=== PATIENT | female | born 1935 | race Two or more races ===

== ENCOUNTER 2020-01-24 10:10 | Inpatient (IN) | payer OTHER ==
[2020-01-24] MEDS ORDERED: ACETAMINOPHEN 325 MG TABLET (FP) PO ONE (10:57)
[2020-01-24] MEDS ORDERED: ACETAMINOPHEN 325 MG TABLET (FP) ONE (11:10)
--- NOTE | 2020-01-24 11:25 | PDOC ---
Documentation entered by Angelito Orellana SCRIBE, acting as scribe for William Harp MD. William Harp MD: This documentation has been prepared by the viktoriaeEsteban Angel, SCRIBE, under my direction and personally reviewed by me in its entirety. I confirm that the documentation accurately reflects all work, treatment, procedures, and medical decision making performed by me. Attending Attestation - Resident Resident Name: Matthew Flaherty - ED Attending Attestation I have performed the following: I have examined & evaluated the patient, The case was reviewed & discussed with the resident, I agree w/resident's findings & plan, Exceptions are as noted - HPI HPI: 01/24/20 11:16 84y F hx of dm, htn, hl, presents with R flank pain. Pt state the pain started gradually approx 2 days ago, and has been worsening - it is so bad it was difficult for her to sleep last night. She courtney any fever/chills, cough, cp, sob, diarrhea, dysuria, hematuria, frquenecy, She dneis any recent trauma/injuries. Notes the pain is constant, not worse with leg movement, eating. +BM. mild improvement with motrin Exam: GENERAL: The patient is awake, alert, and fully oriented, Nontoxic - in no acute distress. HEAD: Normocephalic, atraumatic. EYES: extraocular movements intact, sclera anicteric, conjunctiva clear. ENT: Normal voice, Moist mucous membranes. NECK: Normal range of motion, supple LUNGS: Breath sounds equal, clear to auscultation bilaterally. No wheezes, no rhonchi, no rales. HEART: Regular rate and rhythm, normal S1 and S2 without murmur, rub or gallop. ABDOMEN: Soft, nontender, No guarding, no rebound. No CVA tenderness, Obese abdomen EXTREMITIES: Normal range of motion, no edema. NEUROLOGICAL: No facial assymetry, Normal speech, PSYCH: Normal mood, normal affect. SKIN: Warm, Dry, normal turgor, No rashes noted however there is a focal area of excoriations on the R lumbar/flank region ddx includes uti, kidney stone, consider appendicitis, howver no focal abd tenderness, considere early shingles will obtain blood work, ua willr easses - Physicial Exam PE: 01/31/20 22:52 see above - Medical Decision Making 01/24/20 16:[address] normal UA cw UTI Heart Score/ECG Review - ECG Impressions Comment:: 01/24/20 16:44 Twelve-lead EKG was performed and reviewed by me. There is normal sinus rhythm with a normal rate. rate of 89 RBBB, lAFB Discharge - Discharge Information Problems reviewed: Yes Clinical Impression/Diagnosis: Pyelonephritis Condition: Stable Disposition: HOME - Follow up/Referral - Patient Discharge Instructions - Post Discharge Activity
[2020-01-24] MEDS ORDERED: morphine CARPU-JECT 2 MG/1 ML DISP.SYRIN IVPUSH ONE (11:38)
--- NOTE | 2020-01-24 11:51 | PDOC ---
History of Present Illness - General Chief Complaint: Pain, Acute Stated Complaint: HIP PAIN Time Seen by Provider: 01/24/20 11:13 - History of Present Illness Initial Comments: 84 YOF h/o Parkinson's disease, htn and heart failure presents for right flank pain for 3 days. Patient reports wiggins is sharp in quality, 01/18, nothing makes better or worse, taking tylenol for it without relief. Otherwise denies CP, SOB, N/V/D, fever or chills, blood in urine, pain iwth urination, blood in stool, constipation. Full Review of Systems Constitutional: No Weight Change, No Fever, No Chills, No Night Sweats, No Fatigue, No Malaise ENT/Mouth: No Hearing Changes, No Ear Pain, No Nasal Congestion, No Sinus Pain, No Hoarseness, No sore throat, No Rhinorrhea, No Swallowing Difficulty Eyes: No Eye Pain, No Swelling, No Redness, No Foreign Body, No Discharge, No Vision Changes Cardiovascular: No Chest Pain, No SOB, No PND, No Dyspnea on Exertion, No Orthopnea, No Claudication, No Edema, No Palpitations Respiratory: No Cough, No Sputum, No Wheezing, No Smoke Exposure, No Dyspnea Gastrointestinal: No Nausea, No Vomiting, No Diarrhea, No Constipation, No Pain, No Heartburn, No Anorexia, No Dysphagia, No Hematochezia, No Melena, No Flatulence, No Jaundice Genitourinary: No Dysmenorrhea, No DUB, No Dyspareunia, No Dysuria, No Urinary Frequency, No Hematuria, No Urinary Incontinence, No Urgency, No Flank Pain, No Urinary Flow Changes, No Hesitancy Musculoskeletal: No Arthralgias, No Myalgias, No Joint Swelling, No Joint St iffness, No Back Pain, No Neck Pain, No Injury History Skin: No Skin Lesions, No Pruritis, No Hair Changes, No Breast/Skin Changes, No Nipple Discharge Neuro: No Weakness, No Numbness, No Paresthesias, No Loss of Consciousness, No Syncope, No Dizziness, No Headache, No Coordination Changes, No Recent Falls Psych: No Anxiety/Panic, No Depression, No Insomnia, No Personality Changes, No Delusions, No Rumination, No SI/HI/AH/VH, No Social Issues, No Memory Changes, No Violence/Abuse Hx., No Eating Concerns Heme/Lymph: No Bruising, No Bleeding, No Transfusions History, No Lymphadenopathy Endocrine: No Polyuria, No Polydipsia, No Temperature Intolerance Past History - Medical History Allergies/Adverse Reactions: Allergies Allergy/AdvReac Type Severity Reaction Status Date / Time No Known Drug Allergies Allergy Verified 01/24/20 10:36 Home Medications: Ambulatory Orders Sitagliptin Phosphate [Januvia] 100 mg PO DAILY 07/13/13 Carbidopa/Levodopa [Carbidopa-Levodopa 25-100 Tab] 1 each PO DAILY 01/24/20 Furosemide [Lasix] 20 mg PO DAILY 01/24/20 Meloxicam 15 mg PO DAILY 01/24/20 Pramipexole Di-HCl [Mirapex ER] 0.375 mg PO TID 01/24/20 Ramipril 2.5 mg PO DAILY 01/24/20 COPD: No Diabetes: Yes HTN: Yes Hypercholesterolemia: Yes - Reproductive History Is Patient Now?: No - Psycho-Social/Smoking History Smoking History: Never smoked Have you smoked in the past 12 months: No Information on smoking cessation initiated: No - Substance Abuse Hx (Audit-C & DAST Scrn) How often the patient has a drink containing alcohol: Never Score: In Men: 4 or > Positive; In Women: 3 or > Positive: 0 Screen Result (Pos requires Nsg. Audit-10AR): Negative In the last yr the pt used illegal drug/Rx for NonMed reason: No Score: Yes response is considered Positive: 0 Screen Result (Positive result requires Nsg. DAST-10): Negative *Physical Exam - Vital Signs Last Vital Signs Temp Pulse Resp BP Pulse Ox 98.2 F 86 18 128/72 94 L 01/24/20 10:30 01/24/20 10:30 01/24/20 10:30 01/24/20 10:30 01/24/20 10:30 - Physical Exam General Appearance: Yes: Nourished, Appropriately Dressed, Apparent Distress HEENT: positive: EOMI, RITCHIE, Normal ENT Inspection, Normal Voice, Symmetrical, TMs Normal, Pharynx Normal Neck: positive: Trachea midline, Normal Thyroid Respiratory/Chest: positive: Lungs Clear, Normal Breath Sounds Cardiovascular: positive: Regular Rhythm, Regular Rate, S1, S2 Gastrointestinal/Abdominal: positive: Normal Bowel Sounds, Tender, Flat, Soft, Tenderness Musculoskeletal: positive: Normal Inspection, CVA Tenderness Extremity: positive: Normal Capillary Refill, Normal Inspection Integumentary: positive: Normal Color, Dry, Warm ED Treatment Course - LABORATORY CBC & Chemistry Diagram: 01/24/20 12:16 01/24/20 12:11 - Medications Given in the ED: ED Medications Discontinued Medications Generic Name Dose Route Start Last Admin Trade Name Shruti PRN Reason Stop Dose Admin Acetaminophen 650 mg 01/24/20 10:57 01/24/20 11:15 Tylenol - PO 01/24/20 10:58 650 mg ONCE ONE Administration Medical Decision Making - Medical Decision Making 84 YOF h/o htn, hf, parkinsons presenting with abdominal and flank pain - vitals wnl - exam reveals ttp along right flank and ttp of abdomen - labs, UA, CT abdomen, Xray right hip, tylenol, morphine 01/24/20 15:29 labs wnl UA reveals 1+ LE, >9000 bacteria, 500s WBCs Will give dose rocephin and admit for pyelonephritis/ cystitis 01/24/20 15:30 Admit for pyelo 01/24/20 18:57 Discharge - Discharge Information Problems reviewed: Yes Clinical Impression/Diagnosis: Pyelonephritis - Follow up/Referral - Patient Discharge Instructions - Post Discharge Activity
[2020-01-24] MEDS ORDERED: MORPHINE SULFATE 2 MG/ML VIAL ONE (12:00)
[2020-01-24 12:26] LABS: BASO % 0.5 % (0-2.0); EOS % 0.1 % (0-4.5); LYMPH % 11.2 % (8-40); MCH 30.3 pg (25.7-33.7); MCHC 33.3 g/dl (32.0-36.0); MEAN CELL VOLUME 91.2 fl (80-96); MEAN PLT VOLUME 9.9 fl (7.5-11.1); MONO % 4.6 % (3.8-10.2); NEUT % 83.6 % (42.8-82.8); PLATELET COUNT 250 K/MM3 (134-434); RDW 13.6 % (11.6-15.6); WHITE BLOOD COUNT 10.2 K/mm3 (4.0-10.0)
[2020-01-24 12:58] LABS: ALBUMIN 3.6 g/dl (3.4-5.0); ALK PHOS 96 U/L (45-117); ANION GAP 7 MMOL/L (8-16); BILIRUBIN,TOTAL 0.8 mg/dL (0.2-1); CALCIUM 9.5 mg/dL (8.5-10.1); CHLORIDE 95 mmol/L (98-107); CO2 27 mmol/L (21-32); CREATININE 1.2 mg/dL (0.55-1.3); POTASSIUM 5.1 mmol/L (3.5-5.1); SGOT/AST 25 U/L (15-37); SGPT/ALT 9 U/L (13-61); SODIUM 129 mmol/L (136-145)
[2020-01-24 13:06] LABS: GLUCOSE,RANDOM 442 mg/dL (74-106)
[2020-01-24] MEDS ORDERED: SODIUM CHLORIDE 0.9% 500 ML INFUS.BAG IV ONE (13:10)
[2020-01-24 14:22] LABS: EPI CELLS 6 /uL (0-25.1); HYALINE CASTS 1 /uL (0-3.1); URINE APPEARANCE CLOUDY; URINE BACTERIA >9,000 /uL (0-1359); URINE BILIRUBIN NEGATIVE (NEGATIVE); URINE COLOR YELLOW; URINE GLUCOSE (UA) 3+ (NEGATIVE); URINE KETONE NEGATIVE (NEGATIVE); URINE LEUK ESTERASE 1+ (NEGATIVE); URINE NITRITE NEGATIVE (NEGATIVE); URINE PROTEIN TRACE (NEGATIVE); URINE RBC 11 /uL (0-23.9); URINE UROBILINOGEN 0.2 mg/dL (0.2-1.0); URINE WBC 648 /uL (0-25.8)
[2020-01-24] MEDS ORDERED: CEFTRIAXONE 1 GM in DEXTROSE 5%-WATER - 100 ML IVPB ONE (15:00)
[2020-01-24] MEDS ORDERED: CEFTRIAXONE 1 GM/50 ML BAG ONE (15:09)
--- NOTE | 2020-01-24 16:22 | HP ---
CHIEF COMPLAINT: right sided flank pain PCP: HISTORY OF PRESENT ILLNESS: Patient is an 84 year old female with history of Parkinson's Disease, hypertension, diabetes mellitus, congestive heart failure, presents with complaint of right lower abdominal quadrant/ flank pain. Patient endorses pain has been ongoing for the past three days without clear inciting features. She describes sharp pain localized to the right flank that is constant. She attempted taking Acetaminophen, and Ibuprofen which were temporarily palliative. She endorses urinary frequency, however denies dysuria or hematuria. She denies subjective fevers, chills, shortness of breath, chest pain, palpitations, abdominal pain, nausea, or vomiting. ER course was notable for: (1) CT abdomen, pelvis (2) (3) Recent Travel: denies PAST MEDICAL HISTORY: Parkinson's Disease, hypertension, diabetes mellitus, PAST SURGICAL HISTORY: hysterectomy Social History: Lives with and child. Independent in activities daily living Smoking: Denies smoking cigarettes Alcohol: Denies alcohol consumption Drugs: Denies illicit drug use Allergies No Known Drug Allergies Allergy (Verified 01/24/20 10:36) HOME MEDICATIONS: Home Medications Medication Instructions Recorded Sitagliptin Phosphate [Januvia] 100 mg PO DAILY 07/13/13 Carbidopa/Levodopa 1 each PO DAILY 01/24/20 [Carbidopa-Levodopa 25-100 Tab] Furosemide [Lasix] 20 mg PO DAILY 01/24/20 Meloxicam 15 mg PO DAILY 01/24/20 Pramipexole Di-HCl [Mirapex ER] 0.375 mg PO TID 01/24/20 Ramipril 2.5 mg PO DAILY 01/24/20 REVIEW OF SYSTEMS CONSTITUTIONAL: Absent: fever, chills, diaphoresis, generalized weakness, malaise, loss of appetite, weight change HEENT: Absent: rhinorrhea, nasal congestion, throat pain, throat swelling, difficulty swallowing, mouth swelling, ear pain, eye pain, visual changes CARDIOVASCULAR: Absent: chest pain, syncope, palpitations, irregular heart rate, lightheadedness, peripheral edema RESPIRATORY: Absent: cough, shortness of breath, dyspnea with exertion, orthopnea, wheezing, stridor, hemoptysis GASTROINTESTINAL: Absent: abdominal pain, abdominal distension, nausea, vomiting, diarrhea, constipation, melena, hematochezia GENITOURINARY: Admits; flank pain, urinary frequency. Absent: dysuria, urgency, hesitancy, celestine turia, genital pain MUSCULOSKELETAL: Absent: myalgia, arthralgia, joint swelling, back pain, neck pain SKIN: Absent: rash, itching, pallor HEMATOLOGIC/IMMUNOLOGIC: Absent: easy bleeding, easy bruising, lymphadenopathy, frequent infections ENDOCRINE: Absent: unexplained weight gain, unexplained weight loss, heat intolerance, cold intolerance NEUROLOGIC: Absent: headache, focal weakness or paresthesias, dizziness, unsteady gait, seizure, mental status changes, bladder or bowel incontinence PSYCHIATRIC: Absent: anxiety, depression, suicidal or homicidal ideation, hallucinations. PHYSICAL EXAMINATION Vital Signs - 24 hr 01/24/20 10:30 Temperature 98.2 F Pulse Rate 86 Respiratory 18 Rate Blood Pressure 128/72 O2 Sat by Pulse 94 L Oximetry (%) GENERAL: The patient is awake, alert, and fully oriented, in no acute distress. HEAD: Normocephalic, atraumatic. EYES: PERRL, extraocular movements intact, sclera anicteric, conjunctiva clear. ENT: Oropharynx clear, without erythema or exudates. Moist mucous membranes. NECK: Trachea midline, full range of motion. Supple without lymphadenopathy. LUNGS: Breath sounds equal, clear to auscultation bilaterally. No wheezes, no crackles. No accessory muscle use. HEART: Regular rate and rhythm. S1, S2 without murmur, rub or gallop. ABDOMEN: Soft, nondistended, diffusely tender to deep palpation x4 quadrants. No rebound tenderness, no guarding. Normoactive bowel sounds x4 quadrants. No hepatosplenomegaly, no masses appreciated. Negative CVA tenderness bilaterally EXTREMITIES: 2+ radial, dorsalis pedis pulses bilaterally. Warm, well-perfused. No lower extremity edema bilaterally. NEUROLOGICAL: Cranial nerves II through XII grossly intact. Normal speech. No gross focal deficits. PSYCH: Normal mood, normal affect upon my encounter. SKIN: Warm, dry. Vertical abdominal surgical scar noted well healed. Laboratory Results - last 24 hr 01/24/20 01/24/20 01/24/20 12:11 12:16 13:00 WBC 10.2 H RBC 4.60 Hgb 14.0 Hct 42.0 MCV 91.2 MCH 30.3 MCHC 33.3 RDW 13.6 Plt Count 250 MPV 9.9 Absolute Neuts (auto) 8.5 H Neutrophils % 83.6 H Lymphocytes % 11.2 Monocytes % 4.6 Eosinophils % 0.1 Basophils % 0.5 Nucleated RBC % 0 Sodium 129 L Potassium 5.1 Chloride 95 L Carbon Dioxide 27 Anion Gap 7 L BUN 29.0 H Creatinine 1.2 Est GFR (CKD-EPI)AfAm 47.72 Est GFR (CKD-EPI)NonAf 41.18 Random Glucose 442 H* Calcium 9.5 Total Bilirubin 0.8 AST 25 ALT 9 L Alkaline Phosphatase 96 Total Protein 7.0 Albumin 3.6 Urine Color Yellow Urine Appearance Cloudy Urine pH 5.0 Ur Specific Jermyn 1.025 Urine Protein Trace Urine Glucose (UA) 3+ H Urine Ketones Negative Urine Blood Negative Urine Nitrite Negative Urine Bilirubin Negative Urine Urobilinogen 0.2 Ur Leukocyte Esterase 1+ H Urine WBC (Auto) 648 Urine RBC (Auto) 11 Urine Casts (Auto) 1 U Epithel Cells (Auto) 6 Urine Bacteria (Auto) >9,000 ASSESSMENT/PLAN: Patient is an 84 year old female with history of Parkinson's Disease, hypertension, diabetes mellitus, congestive heart failure, presents with complaint of right lower abdominal quadrant, flank pain. Pyelonephritis -CT abdomen pelvis reveals no acute hydronephrosis, or nephrolithiasis -WBC 10.2. UA reveals bacteruria with leukocyte esterase -Received Ceftriaxone in ED. Will continue Ceftriaxone for now -Renal/ bladder ultrasound to evaluate for nephrolithiasis -Follow urine cultures -Monitor intake, output Hyperglycemia, Diabetes mellitus -Glucose of 445 in ED, anion gap 7. Fingerstick currently 295. -Patient received hydration with IV normal saline -Repeat BMP -Insulin sliding scale ACHS. Holding home Januvia -Fingerstick blood glucose monitoring ACHS -HgBA1c RBBB, Left anterior fascicular block -Noted on ECG, none available for comparison. Denies any chest pain. -Will obtain Troponin -Cardiology evaluation (Dr Harrison) -Telemetry monitoring History of hypertension -Holding home Ramipril in setting of AUBREE -Reinstate once clinically appropriate Parkinson's Disease Continue home Carbidopa-Levodopa, Paramipexole HFrEF -Taking Furosemide at home, however unclear indication. Will hold for now in favor of gentle hydration -Will need to eulicdate indication with primary care physician FEN -IV normal saline at 50mL/ hour X1 bag -Follow BMP -Sodium modified diabetic diet Prophylaxis -Heparin 5000units subq TID Disposition -Admit to Telemetry floor Family Medical History Family History: Unremarkable Visit type - Medication Review Med list reviewed for High Risk Meds patients 65 and older: Yes - Emergency Visit Emergency Visit: Yes ED Registration Date: 01/24/20 Care time: The patient presented to the Emergency Department on the above date and was hospitalized for further evaluation of their emergent condition. - New Patient This patient is new to me today: Yes Date on this admission: 01/24/20 - Critical Care Critical Care patient: No ATTENDING PHYSICIAN STATEMENT I saw and evaluated the patient. I reviewed the resident's note and discussed the case with the resident. I agree with the resident's findings and plan as documented. SUBJECTIVE: OBJECTIVE: ASSESSMENT AND PLAN:
[2020-01-24] MEDS: INSULIN SLIDING SCALE (NOVOLOG) 1 VIAL SQ SCH ×2 (16:35→22:23)
[2020-01-24] MEDS ORDERED: SODIUM CHLORIDE 1,000 ML IV SCH (18:15)
[2020-01-24 19:10] LABS: BLOOD UREA NITROGEN 21.8 mg/dL (7-18); CALCIUM 8.9 mg/dL (8.5-10.1); CREATININE 1.1 mg/dL (0.55-1.3); POTASSIUM 4.7 mmol/L (3.5-5.1)
[2020-01-24] MEDS ORDERED: ACETAMINOPHEN INJECTION 100 ML IVPB ONE (19:58)
[2020-01-24] MEDS: ACETAMINOPHEN 1000 MG/100 ML VIAL (NON FORMULARY) IVPB PRN (20:03)
[2020-01-24] MEDS ORDERED: HEPARIN NA (PORCINE) 5,000 UNITS/ML 1ML VIAL ONE (22:10)
[2020-01-24] MEDS: HEPARIN NA (PORCINE) 5,000 UNITS/ML 1ML VIAL SQ SCH (22:23)
--- NOTE | 2020-01-25 05:49 | CON.CARD ---
Consult Consult Specialty:: Cardiology Referred by:: Dr. Mariano Reason for Consultation:: abnl ECG - History of Present Illness Chief Complaint: Flank pain History of Present Illness: 84 F Parkinson's Dz, HTN, DM, "CHF", presents to ER with abdominal pain and flank pain and UTI. Found to have a baseline abnl ECG for which we are consulted. 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 Denies CP/SOB/Palps/syncope. - History Source History Provided By: Patient Limitations to Obtaining History: No Limitations - Past Medical History ENVIRONMENTAL PLANNER: Yes: Parkinson's Cardio/Vascular: Yes: CHF, HTN Hepatobiliary: No: Cirrhosis, Cholelithiasis, Cholecystitis, Choled ocholithiasis, Hepatitis A, Hepatitis B, Hepatitis C, Other Renal/: No: Renal Failure, Renal Inusuff, BPH, Cancer, Hematuria, Hemodialysis, Neurogenic Bladder, Renal Calculi, UTI, Other Reproductive: No: Ectopic , Endometriosis, Fibroids, PID, Polycystic Ovary Syndrome, Postmenopausal, Other ...: No - Alcohol/Substance Use Hx Alcohol Use: No - Smoking History Smoking history: Never smoked Have you smoked in the past 12 months: No - Social History History of Recent Travel: No Home Medications - Allergies Allergies/Adverse Reactions: Allergies Allergy/AdvReac Type Severity Reaction Status Date / Time No Known Drug Allergies Allergy Verified 01/24/20 10:36 - Home Medications Home Medications: Ambulatory Orders Sitagliptin Phosphate [Januvia] 100 mg PO DAILY 07/13/13 Carbidopa/Levodopa [Carbidopa-Levodopa 25-100 Tab] 1 each PO DAILY 01/24/20 Furosemide [Lasix] 20 mg PO DAILY 01/24/20 Meloxicam 15 mg PO DAILY 01/24/20 Pramipexole Di-HCl [Mirapex ER] 0.375 mg PO TID 01/24/20 Ramipril 2.5 mg PO DAILY 01/24/20 Family Medical History Family History: Unremarkable Review of Systems - Review of Systems Constitutional: reports: No Symptoms Eyes: reports: No Symptoms HENT: reports: No Symptoms Neck: reports: No Symptoms Cardiovascular: reports: No Symptoms Respiratory: reports: No Symptoms Gastrointestinal: reports: Abdominal Pain, Other (flank pain) Breasts: reports: No Symptoms Reported Musculoskeletal: reports: Other (pain over lower back, iliac crests) - Risk Factors Known Risk Factors: Yes: Age, Hypertension Vital Signs: Vital Signs Temperature 98.2 F 01/24/20 10:30 Pulse Rate 76 01/25/20 02:22 Respiratory Rate 18 01/25/20 02:22 Blood Pressure 146/66 01/25/20 02:22 O2 Sat by Pulse Oximetry (%) 95 01/25/20 02:22 Constitutional: Yes: No Distress, Calm Eyes: Yes: Conjunctiva Clear Respiratory: Yes: CTA Bilaterally Gastrointestinal: Yes: Soft (No rebound, guarding) JVD: No Carotid Bruit: No Heart Sounds: Yes: S1, S2 (rrr) Edema: No Neurological: Yes: Alert - Other Data Labs, Other Data: CBC, BMP 01/24/20 12:16 01/24/20 18:22 Troponin, BNP 01/24/20 01/25/20 12:11 01:30 Troponin I < 0.02 < 0.02 Troponin, BNP 01/24/20 01/25/20 12:11 01:30 Troponin I < 0.02 < 0.02 NSR LAHB, RBBB, nonspecific T wave laterally Echo: Pending Imaging - Results Chest X-ray: Image Reviewed Cat Scan: Report Reviewed Assessment/Plan IMP: Abdominal pain with suspected UTI Back pain Abnormal ECG, incidental finding Chronic HTN "CHF" REC: 1. Abdominal /flank pain: -Suspected UTI -As per PMD -Seems to be component of MSK pain as well 2. 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 3. HTN: -Cont home meds 4. CHF: -Unclear history -Euvolemic at this time -Echo for EF assessmen Can d/c telemetry
[2020-01-25 06:40] LABS: HEMATOCRIT 37.7 % (32.4-45.2); HEMOGLOBIN 12.5 GM/dL (10.7-15.3); MCH 30.3 pg (25.7-33.7); MCHC 33.2 g/dl (32.0-36.0); MEAN CELL VOLUME 91.4 fl (80-96); MEAN PLT VOLUME 9.6 fl (7.5-11.1); PLATELET COUNT 206 K/MM3 (134-434); RBC 4.12 M/mm3 (3.60-5.2); RDW 13.6 % (11.6-15.6); WHITE BLOOD COUNT 7.3 K/mm3 (4.0-10.0)
[2020-01-25 07:11] LABS: BILIRUBIN,TOTAL 0.4 mg/dL (0.2-1); BLOOD UREA NITROGEN 18.3 mg/dL (7-18); CALCIUM 8.9 mg/dL (8.5-10.1); CREATININE 0.9 mg/dL (0.55-1.3); MAGNESIUM 1.8 mg/dL (1.8-2.4); PHOSPHOROUS 2.5 mg/dL (2.5-4.9); POTASSIUM 4.2 mmol/L (3.5-5.1)
[2020-01-25] MEDS ORDERED: ACETAMINOPHEN INJECTION 100 ML IVPB ONE (07:43)
[2020-01-25] MEDS ORDERED: HEPARIN NA (PORCINE) 5,000 UNITS/ML 1ML VIAL ONE (07:43)
[2020-01-25] MEDS: ACETAMINOPHEN 1000 MG/100 ML VIAL (NON FORMULARY) IVPB PRN (07:53)
[2020-01-25] MEDS: HEPARIN NA (PORCINE) 5,000 UNITS/ML 1ML VIAL SQ SCH ×3 (07:53→22:13)
[2020-01-25] MEDS: INSULIN SLIDING SCALE (NOVOLOG) 1 VIAL SQ SCH ×4 (07:53→22:14)
--- NOTE | 2020-01-25 08:59 | EKG ---
Test Reason : Blood Pressure : / mmHG Vent. Rate : 089 BPM Atrial Rate : 089 BPM P-R Int : 136 ms QRS Dur : 118 ms QT Int : 380 ms P-R-T Axes : 031 -68 024 degrees QTc Int : 462 ms NORMAL SINUS RHYTHM RIGHT BUNDLE BRANCH BLOCK LEFT ANTERIOR FASCICULAR BLOCK NONSPECIFIC T WAVE ABNORMALITY BIFASCICULAR BLOCK ABNORMAL ECG Confirmed by RASHMI GUY MD ([id number]) on 01/25/2020 8:58:46 AM Referred By: Confirmed By:RASHMI GUY MD
[2020-01-25] MEDS ORDERED: DEXTROSE 5%-WATER - 50 ML IVPB ONE (09:12)
[2020-01-25] MEDS ORDERED: cefTRIAXone SODIUM 1 GM VIAL ONE (09:12)
[2020-01-25] MEDS: CARBIDOPA/LEVODOPA 25/100 TABLET (FP) PO SCH (09:19)
[2020-01-25] MEDS ORDERED: MORPHINE SULFATE 2 MG/ML VIAL IVPUSH ONE (09:45)
--- NOTE | 2020-01-25 10:55 | ECHO ---
Version: 1 Name: LAURIE GUZMAN Exam: Adult Echocardiogram Study Date: 01/25/2020, 9:36 AM Age: 84 Years MMode/2D Measurements & Calculations IVSd: 0.96 cm LVIDs: 2.01 cm LVIDd: 2.9 cm LVPWd: 1.09 cm ACS: 1.89 cm Ao root diam: 3.0 cm LVOT diam: 2.00 cm LA dimension: 3.5 cm Doppler Measurements & Calculations MV E max francisco javier: 115.0 cm/sec Med E/e': 23.1 MV A max francisco javier: 105.1 cm/sec Med Peak E' Francisco Javier: 5.0 cm/sec MV E/A: 1.09 Lat E/e': 17.4 Lat Peak E' Francisco Javier: 6.6 cm/sec Ao max P.7 mmHg LEANNE(I,D): 2.09 cm Ao mean P.6 mmHg LV V1 mean: 58.2 cm/sec Ao V2 max: 138.5 cm/sec LV V1 mean P.80 mmHg Procedure The study was technically difficult with many images being suboptimal in quality. Left Ventricle Left ventricular systolic function is grossly normal. Ejection Fraction = 60-65%. The transmitral sp ectral Doppler flow pattern is normal for age. Regional wall motion abnormalities cannot be excluded due to limited visualization. Right Ventricle The right ventricle is normal in size and function. Atria Normal left and right atrial size and function. Mitral Valve The mitral valve is normal in structure and function. There is no mitral valve stenosis. There is mi ld mitral regurgitation. Tricuspid Valve The tricuspid valve is not well visualized, but is grossly normal. There is trace tricuspid regurgit ation. Aortic Valve There is mild aortic sclerosis.;. No hemodynamically significant valvular aortic stenosis. No aortic regurgitation is present. Pulmonic Valve The pulmonic valve is not well seen, but is grossly normal. There is no pulmonic valvular stenosis. Trace pulmonic valvular regurgitation. Great Vessels The aortic root is normal size. Pericardium/Pleura There is no pericardial effusion. Tech Comments TDS. Limited visibility. Summary Statements The study was technically difficult with many images being suboptimal in quality. Regional wall motion abnormalities cannot be excluded due to limited visualization. Left ventricular systolic function is grossly normal. The right ventricle is normal in size and function. There is mild mitral regurgitation. There is trace tricuspid regurgitation. There is no pericardial effusion. MD Rondon *Balaji 01/25/2020, 10:55 AM Ordering Physician: Alcon Guy Referring Physician: ALCON GUY Performed By: Kayla Mensah
[2020-01-25] MEDS: CEFTRIAXONE 1 GM in DEXTROSE 5%-WATER - 50 ML IVPB SCH (11:06)
--- NOTE | 2020-01-25 12:08 | PN ---
Teaching Attending Note Name of Resident: Pamela Trujillo ATTENDING PHYSICIAN STATEMENT I saw and evaluated the patient. I reviewed the resident's note and discussed the case with the resident. I agree with the resident's findings and plan as documented. SUBJECTIVE: pt seen and examined OBJECTIVE: Last Vital Signs Temp Pulse Resp BP Pulse Ox 98.3 F 97 H 18 144/64 97 01/25/20 09:03 01/25/20 09:03 01/25/20 09:03 01/25/20 09:03 01/25/20 09:03 GENERAL: Awake, alert, and fully oriented, in no acute distress. LUNGS: Breath sounds equal, clear to auscultation bilaterally. No wheezes, and no crackles. No accessory muscle use. HEART: Regular rate and rhythm, normal S1 and S2 ABDOMEN: Soft,Rt lumbar and CVA tenderness, BS+ LOWER EXTREMITIES: 2+ pulses, warm, well-perfused. No calf tenderness. No peripheral edema. NEUROLOGICAL: Cranial nerves II-XII intact. Normal speech. CBCD WBC 7.3 K/mm3 (4.0-10.0) 01/25/20 05:50 RBC 4.12 M/mm3 (3.60-5.2) 01/25/20 05:50 Hgb 12.5 GM/dL (10.7-15.3) 01/25/20 05:50 Hct 37.7 % (32.4-45.2) 01/25/20 05:50 MCV 91.4 fl (80-96) 01/25/20 05:50 MCHC 33.2 g/dl (32.0-36.0) 01/25/20 05:50 RDW 13.6 % (11.6-15.6) 01/25/20 05:50 Plt Count 206 K/MM3 (134-434) 01/25/20 05:50 MPV 9.6 fl (7.5-11.1) 01/25/20 05:50 CMP Sodium 136 mmol/L (136-145) 01/25/20 05:50 Potassium 4.2 mmol/L (3.5-5.1) 01/25/20 05:50 Chloride 104 mmol/L (98-107) 01/25/20 05:50 Carbon Dioxide 27 mmol/L (21-32) 01/25/20 05:50 Anion Gap 5 MMOL/L (8-16) L 01/25/20 05:50 BUN 18.3 mg/dL (7-18) H 01/25/20 05:50 Creatinine 0.9 mg/dL (0.55-1.3) 01/25/20 05:50 Random Glucose 175 mg/dL (74-106) H 01/25/20 05:50 Calcium 8.9 mg/dL (8.5-10.1) 01/25/20 05:50 Total Bilirubin 0.4 mg/dL (0.2-1) 01/25/20 05:50 AST 18 U/L (15-37) 01/25/20 05:50 ALT 18 U/L (13-61) 01/25/20 05:50 Alkaline Phosphatase 75 U/L (45-117) 01/25/20 05:50 Total Protein 6.0 g/dl (6.4-8.2) L 01/25/20 05:50 Albumin 3.0 g/dl (3.4-5.0) L 01/25/20 05:50 CARDIAC ENZYMES Troponin I < 0.02 ng/ml (0.00-0.05) 01/25/20 01:30 Active Medications Acetaminophen (Ofirmev Injection -) 1,000 mg IVPB Q6H PRN PRN Reason: PAIN LEVEL 1-5 Last Admin: 01/25/20 07:53 Dose: 1,000 mg Documented by: Carbidopa/Levodopa (Sinemet 25/100 -) 1 each PO DAILY SONYA Last Admin: 01/25/20 09:19 Dose: 1 each Documented by: Heparin Sodium (Porcine) (Heparin -) 5,000 unit SQ TID SONYA Last Admin: 01/25/20 07:53 Dose: 5,000 unit Documented by: Ceftriaxone Sodium 1 gm/ (Dextrose) 50 mls @ 100 mls/hr IVPB DAILY SONYA; Protocol Last Admin: 01/25/20 11:06 Dose: 100 mls/hr Documented by: Sodium Chloride (Normal Saline -) 1,000 mls @ 50 mls/hr IV ASDIR SONYA Stop: 01/25/20 14:14 Last Admin: 01/24/20 19:04 Dose: 50 mls/hr Documented by: Insulin Aspart (Novolog Vial Sliding Scale -) 1 vial SQ ACHS SONYA; Protocol Last Admin: 01/25/20 07:53 Dose: 1 unit Documented by: Non-Formulary Medication (Pramipexole Di-Hcl [Mirapex Er]) 0.375 mg PO TID [facility] ASSESSMENT AND PLAN: 84 year old lady with history of Parkinson's Disease, hypertension, diabetes mellitus, HFpEF, presents with complaint of right lower abdominal quadrant/ flank pain # Sepsis due to acute pyelonephritis leukocytosis, tachycardia, +ve UA/culture -CT and US noted, no hydronephrosis -VSS -c/w ceftriaxone, gentle hydration, pain management -urine cultures G-ve -Monitor intake, output Hyperglycemia Diabetes mellitus HFpEF AUBREE Parkinson's Disease DVT prophylaxis
--- NOTE | 2020-01-25 12:37 | PN ---
Physical Exam: SUBJECTIVE: Patient seen and examined at bedside. No acute events overnight. OBJECTIVE: Vital Signs Period Temp Pulse Resp BP Sys/Delgadillo Pulse Ox Last 24 Hr 97.9 F-98.3 F 76-97 17-18 118-146/50-72 94-97 GENERAL: AAOx3, in no acute distress HEENT: NCAT, PERRLA, EOMI, sclera anicteric, conjunctiva clear, oropharynx clear w/o exudates. MMM. NECK: Normal ROM, supple, no lymphadenopathy, JVD, or masses LUNGS: CTABL no wheezes/ rhonchi/ rales. No distress, speaks in full sentences. No increased work of breathing. HEART: RRR, normal S1 S2, no M/R/G, peripheral pulses 2+ and equal b/l ABDOMEN: Soft, NTND, + BS. No guarding or rebound. No hepatomegaly or splenomegaly. +CVA tenderness MSK: ROM WNL EXTREMITIES: Normal inspection. No peripheral edema. No clubbing or cyanosis. NEUROLOGICAL: CN II-XII intact. Normal speech, no focal sensorimotor deficits. SKIN: Warm, Dry, normal turgor, no rashes or lesions noted Laboratory Results - last 24 hr CBC, BMP 01/25/20 05:50 01/25/20 05:50 01/24/20 01/24/20 01/24/20 12:11 13:00 16:33 WBC RBC Hgb Hct MCV MCH MCHC RDW Plt Count MPV Sodium 129 L Potassium 5.1 Chloride 95 L Carbon Dioxide 27 Anion Gap 7 L BUN 29.0 H Creatinine 1.2 Est GFR (CKD-EPI)AfAm 47.72 Est GFR (CKD-EPI)NonAf 41.18 POC Glucometer 295 Random Glucose 442 H* Calcium 9.5 Phosphorus Magnesium Total Bilirubin 0.8 AST 25 ALT 9 L Alkaline Phosphatase 96 Troponin I < 0.02 Total Protein 7.0 Albumin 3.6 Urine Color Yellow Urine Appearance Cloudy Urine pH 5.0 Ur Specific Pinson 1.025 Urine Protein Trace Urine Glucose (UA) 3+ H Urine Ketones Negative Urine Blood Negative Urine Nitrite Negative Urine Bilirubin Negative Urine Urobilinogen 0.2 Ur Leukocyte Esterase 1+ H Urine WBC (Auto) 648 Urine RBC (Auto) 11 Urine Casts (Auto) 1 U Epithel Cells (Auto) 6 Urine Bacteria (Auto) >9,000 01/24/20 01/24/20 01/25/20 18:22 22:13 01:30 WBC RBC Hgb Hct MCV MCH MCHC RDW Plt Count MPV Sodium 133 L Potassium 4.7 Chloride 100 Carbon Dioxide 26 Anion Gap 8 BUN 21.8 H Creatinine 1.1 Est GFR (CKD-EPI)AfAm 53.02 Est GFR (CKD-EPI)NonAf 45.74 POC Glucometer 288 Random Glucose 275 H Calcium 8.9 Phosphorus Magnesium Total Bilirubin AST ALT Alkaline Phosphatase Troponin I < 0.02 Total Protein Albumin Urine Color Urine Appearance Urine pH Ur Specific Pinson Urine Protein Urine Glucose (UA) Urine Ketones Urine Blood Urine Nitrite Urine Bilirubin Urine Urobilinogen Ur Leukocyte Esterase Urine WBC (Auto) Urine RBC (Auto) Urine Casts (Auto) U Epithel Cells (Auto) Urine Bacteria (Auto) 01/25/20 01/25/20 01/25/20 05:50 05:50 07:34 WBC 7.3 RBC 4.12 Hgb 12.5 Hct 37.7 MCV 91.4 MCH 30.3 MCHC 33.2 RDW 13.6 Plt Count 206 MPV 9.6 Sodium 136 Potassium 4.2 Chloride 104 Carbon Dioxide 27 Anion Gap 5 L BUN 18.3 H Creatinine 0.9 Est GFR (CKD-EPI)AfAm 67.57 Est GFR (CKD-EPI)NonAf 58.30 POC Glucometer 193 Random Glucose 175 H Calcium 8.9 Phosphorus 2.5 Magnesium 1.8 Total Bilirubin 0.4 AST 18 ALT 18 Alkaline Phosphatase 75 Troponin I Total Protein 6.0 L Albumin 3.0 L Urine Color Urine Appearance Urine pH Ur Specific Pinson Urine Protein Urine Glucose (UA) Urine Ketones Urine Blood Urine Nitrite Urine Bilirubin Urine Urobilinogen Ur Leukocyte Esterase Urine WBC (Auto) Urine RBC (Auto) Urine Casts (Auto) U Epithel Cells (Auto) Urine Bacteria (Auto) Active Medications Generic Name Dose Route Start Last Admin Trade Name Freq PRN Reason Stop Dose Admin Acetaminophen 1,000 mg 01/24/20 18:15 01/25/20 07:53 Ofirmev Injection - IVPB 1,000 mg Q6H PRN Administration PAIN LEVEL 1-5 Carbidopa/Levodopa 1 each 01/25/20 10:00 01/25/20 09:19 Sinemet 25/100 - PO 1 each DAILY SONYA Administration Heparin Sodium (Porcine) 5,000 unit 01/24/20 22:00 01/25/20 07:53 Heparin - SQ 5,000 unit TID SONYA Administration Ceftriaxone Sodium 1 gm/ 50 mls @ 100 mls/hr 01/25/20 10:00 01/25/20 11:06 Dextrose IVPB 100 mls/hr DAILY SONYA Administration Protocol Sodium Chloride 1,000 mls @ 50 mls/hr 01/24/20 18:15 01/24/20 19:04 Normal Saline - IV 01/25/20 14:14 50 mls/hr ASDIR SONYA Administration Insulin Aspart 1 vial 01/24/20 16:30 01/25/20 11:54 Novolog Vial Sliding Scale - SQ 2 unit ACHS SONYA Administration Protocol Non-Formulary Medication 0.375 mg 01/24/20 22:00 Pramipexole Di-Hcl [Mirapex Er] PO TID SONYA ASSESSMENT/PLAN: 84 year old lady with history of Parkinson's Disease, hypertension, diabetes mellitus, HFpEF, presenting with complaint of right lower abdominal quadrant/flank pain. #Sepsis 2/2 acute pyelonephritis -leukocytosis and positive UA/culture -urine cultures: preliminary gram - organism -CT and US noted -VSS with tachycardia -c/w ab Ceftriaxone -c/w gentle hydration -c/w pain management PRN -monitor I/O's #Diabetes mellitus -ISS w/ BGM's #HFpEF -stable at this visit -home med Lasix held in favor of gentle hydration -continue to monitor #AUBREE -c/w gentle hydration #Parkinson's Disease c/w home Carbidopa-Levodopa #FEN -NS @ 50 mls/hrs -monitor lytes; replete PRN -diabetic sodium controlled diet #Prophylaxis -DVT: Heparin SQ TID Visit type - Emergency Visit Emergency Visit: No - New Patient This patient is new to me today: No - Critical Care Critical Care patient: No - Discharge Referral Referred to [facility] Med P.C[facility] No - Medication Review Med list reviewed for High Risk Meds patients 65 and older: Yes ATTENDING PHYSICIAN STATEMENT I saw and evaluated the patient. I reviewed the resident's note and discussed the case with the resident. I agree with the resident's findings and plan as documented. SUBJECTIVE: OBJECTIVE: ASSESSMENT AND PLAN:
[2020-01-25 13:36] VITALS: BMI 26.2
[2020-01-25] MEDS ORDERED: DOCUSATE SODIUM 100 MG CAPSULE (FP) PO ONE (16:14)
[2020-01-25] MEDS ORDERED: PNEUMOC 13-VAL CONJ-DIP CRM/PF 0.5 ML DISP.SYRIN IM ONE (18:00)
[2020-01-25] MEDS: SENNOSIDES 8.6MG TABLET (FP) PO SCH (22:13)
--- NOTE | 2020-01-25 22:34 | PN ---
Teaching Attending Note Name of Resident: Luis Maria ATTENDING PHYSICIAN STATEMENT I saw and evaluated the patient. I reviewed the resident's note and discussed the case with the resident. I agree with the resident's findings and plan as documented. SUBJECTIVE: Patient seen and examined at bedside, admitted for UTI, started on abx, VSS. OBJECTIVE: GENERAL: The patient is awake, alert, and fully oriented, in no acute distress. HEAD: Normocephalic, atraumatic. EYES: PERRL, extraocular movements intact, sclera anicteric, conjunctiva clear. ENT: Oropharynx clear, without erythema or exudates. Moist mucous membranes. NECK: Trachea midline, full range of motion. Supple without lymphadenopathy. LUNGS: Breath sounds equal, clear to auscultation bilaterally. No wheezes, no crackles. No accessory muscle use. HEART: Regular rate and rhythm. S1, S2 without murmur, rub or gallop. ABDOMEN: Soft, nondistended, diffusely tender to deep palpation x4 quadrants. No rebound tenderness, no guarding. Normoactive bowel sounds x4 quadrants. No hepatosplenomegaly, no masses appreciated. Negative CVA tenderness bilaterally EXTREMITIES: 2+ radial, dorsalis pedis pulses bilaterally. Warm, well-perfused. No lower extremity edema bilaterally. NEUROLOGICAL: Cranial nerves II through XII grossly intact. Normal speech. No gross focal deficits. PSYCH: Normal mood, normal affect upon my encounter. SKIN: Warm, dry. Vertical abdominal surgical scar noted well healed. Vital Signs (72 hours) 01/24/20 01/25/20 01/25/20 10:30 02:22 06:02 Temperature 98.2 F 97.9 F Pulse Rate 86 Pulse Rate [ 76 84 Left Radial] Respiratory 18 18 17 Rate Blood Pressure 128/72 Blood Pressure 146/66 132/72 [Right Arm] O2 Sat by Pulse 94 L 95 94 L Oximetry (%) 01/25/20 01/25/20 01/25/20 08:06 09:00 09:03 Temperature 98.3 F Pulse Rate 97 H Pulse Rate [ 81 Left Radial] Respiratory 18 18 Rate Blood Pressure 144/64 Blood Pressure 118/50 L [Right Arm] O2 Sat by Pulse 94 L 97 97 Oximetry (%) 01/25/20 01/25/20 01/25/20 13:41 14:21 18:00 Temperature 97.7 F 97.7 F Pulse Rate 87 97 H Pulse Rate [ Left Radial] Respiratory 20 18 Rate Blood Pressure 121/57 L 135/68 Blood Pressure [Right Arm] O2 Sat by Pulse 97 Oximetry (%) Microbiology 01/24/20 13:00 Urine - Urine Clean Catch Urine Culture - Preliminary Lactose Fermenting Neg Bacilli Lactose Fermenting Neg Bacilli#2 Laboratory Results - last 24 hr 01/25/20 01/25/20 01/25/20 01:30 05:50 05:50 WBC 7.3 RBC 4.12 Hgb 12.5 Hct 37.7 MCV 91.4 MCH 30.3 MCHC 33.2 RDW 13.6 Plt Count 206 MPV 9.6 Sodium 136 Potassium 4.2 Chloride 104 Carbon Dioxide 27 Anion Gap 5 L BUN 18.3 H Creatinine 0.9 Est GFR (CKD-EPI)AfAm 67.57 Est GFR (CKD-EPI)NonAf 58.30 POC Glucometer Random Glucose 175 H Calcium 8.9 Phosphorus 2.5 Magnesium 1.8 Total Bilirubin 0.4 AST 18 ALT 18 Alkaline Phosphatase 75 Troponin I < 0.02 Total Protein 6.0 L Albumin 3.0 L 01/25/20 07:34 WBC RBC Hgb Hct MCV MCH MCHC RDW Plt Count MPV Sodium Potassium Chloride Carbon Dioxide Anion Gap BUN Creatinine Est GFR (CKD-EPI)AfAm Est GFR (CKD-EPI)NonAf POC Glucometer 193 Random Glucose Calcium Phosphorus Magnesium Total Bilirubin AST ALT Alkaline Phosphatase Troponin I Total Protein Albumin Home Medications Medication Instructions Recorded Sitagliptin Phosphate [Januvia] 50 mg PO DAILY 07/13/13 Carbidopa/Levodopa 1 each PO TID 01/24/20 [Carbidopa-Levodopa 25-100 Tab] Furosemide [Lasix] 20 mg PO DAILY 01/24/20 Pramipexole Di-HCl [Mirapex ER] 0.375 mg PO TID 01/24/20 Ramipril 2.5 mg PO DAILY 01/24/20 Insulin Glargine,Hum.rec.anlog 45 unit SQ DAILY 01/25/20 [Basaglar Kwikpen U-100] Current Medications Generic Name Dose Route Start Last Admin Trade Name Freq PRN Reason Stop Dose Admin Acetaminophen 1,000 mg 01/25/20 18:25 Tylenol - PO Q6H PRN PAIN LEVEL 1-5 Carbidopa/Levodopa 1 each 01/25/20 10:00 01/25/20 09:19 Sinemet 25/100 - PO 1 each DAILY SONYA Administration Docusate Sodium 100 mg 01/26/20 10:00 Colace - PO DAILY SONYA Heparin Sodium (Porcine) 5,000 unit 01/24/20 22:00 01/25/20 22:13 Heparin - SQ 5,000 unit TID SONYA Administration Ceftriaxone Sodium 1 gm/ 50 mls @ 100 mls/hr 01/25/20 10:00 01/25/20 11:06 Dextrose IVPB 100 mls/hr DAILY SONYA Administration Protocol Insulin Aspart 1 vial 01/24/20 16:30 01/25/20 22:14 Novolog Vial Sliding Scale - SQ 4 unit ACHS SONYA Administration Protocol Non-Formulary Medication 0.375 mg 01/24/20 22:00 Pramipexole Di-Hcl [Mirapex Er] PO TID SONYA Senna 1 tab 01/25/20 22:00 01/25/20 22:13 Senna - PO 1 tab HS SONYA Administration ASSESSMENT AND PLAN: 84 F UTI T2DM RBBB PArkinson's HTN HLD HFrEF Plan: IV Rocephin for UTI FOllow urine cultures, obtain blood cultures Follow COVID swab Gentle IV hydration (hypovolemic on exam) Obtain Echo to assess for WMA Trops x2 Cardiology evaluation for BBB DVT ppx: Heparin SC
[2020-01-26] MEDS: ACETAMINOPHEN 500 MG TABLET (FP) PO PRN ×3 (00:25→12:15)
[2020-01-26] MEDS ORDERED: BISACODYL 10 MG SUPP.RECT PR ONE (00:29)
[2020-01-26] MEDS ORDERED: SODIUM PHOSPHATE/NA BIPHOS 133 ML ENEMA PR ONE (00:31)
[2020-01-26] MEDS: HEPARIN NA (PORCINE) 5,000 UNITS/ML 1ML VIAL SQ SCH ×3 (06:02→21:10)
[2020-01-26] MEDS: INSULIN SLIDING SCALE (NOVOLOG) 1 VIAL SQ SCH ×4 (06:02→21:10)
--- NOTE | 2020-01-26 08:57 | PN ---
Physical Exam: SUBJECTIVE: Patient seen and examined OBJECTIVE: Vital Signs Period Temp Pulse Resp BP Sys/Delgadillo Pulse Ox Last 24 Hr 97.7 F-98.6 F 87-97 18-20 121-144/57-76 97-97 GENERAL: The patient is awake, alert, and fully oriented, in no acute distress. LUNGS: Breath sounds equal, clear to auscultation bilaterally, no wheezes, no crackles, no accessory muscle use. HEART: Regular rate and rhythm, S1, S2 without murmur, rub or gallop. ABDOMEN: Soft, lt lumbar tenderness without rebound tenderness EXTREMITIES: 2+ pulses, warm, well-perfused, no edema. Laboratory Results - last 24 hr 01/24/20 01:30 COVID-19 (AMINTA) Not detected Active Medications Generic Name Dose Route Start Last Admin Trade Name Freq PRN Reason Stop Dose Admin Acetaminophen 1,000 mg 01/25/20 18:25 01/26/20 06:06 Tylenol - PO 1,000 mg Q6H PRN Administration PAIN LEVEL 1-5 Carbidopa/Levodopa 1 each 01/25/20 10:00 01/25/20 09:19 Sinemet 25/100 - PO 1 each DAILY SONYA Administration Docusate Sodium 100 mg 01/26/20 10:00 Colace - PO DAILY SONYA Heparin Sodium (Porcine) 5,000 unit 01/24/20 22:00 01/26/20 06:02 Heparin - SQ 5,000 unit TID SONYA Administration Ceftriaxone Sodium 1 gm/ 50 mls @ 100 mls/hr 01/25/20 10:00 01/25/20 11:06 Dextrose IVPB 100 mls/hr DAILY SONYA Administration Protocol Insulin Aspart 1 vial 01/24/20 16:30 01/26/20 06:02 Novolog Vial Sliding Scale - SQ 2 unit ACHS SONYA Administration Protocol Non-Formulary Medication 0.375 mg 01/24/20 22:00 Pramipexole Di-Hcl [Mirapex Er] PO TID SONYA Polyethylene Glycol 17 gm 01/26/20 10:00 Miralax (For Daily Use) - PO BID SONYA Senna 1 tab 01/25/20 22:00 01/25/20 22:13 Senna - PO 1 tab HS SONYA Administration ASSESSMENT/PLAN: 84 year old lady with history of Parkinson's Disease, hypertension, diabetes mellitus, HFpEF, presents with complaint of right lower abdominal quadrant/ flank pain # Sepsis due to acute pyelonephritis leukocytosis, tachycardia, +ve UA/culture -CT and US noted, no hydronephrosis -VSS -c/w ceftriaxone, gentle hydration, pain management -urine cultures G-ve -Monitor intake, output -still have lt sided pain, constipation?MSK? # Acute constipation -bowel regimen -added Miralax Hyperglycemia Diabetes mellitus HFpEF AUBREE Parkinson's Disease DVT prophylaxis Visit type - Emergency Visit Emergency Visit: Yes ED Registration Date: 01/24/20 Care time: The patient presented to the Emergency Department on the above date and was hospitalized for further evaluation of their emergent condition. - New Patient This patient is new to me today: No - Critical Care Critical Care patient: No - Discharge Referral Referred to [facility] Med P[facility] No - Medication Review Med list reviewed for High Risk Meds patients 65 and older: No
[2020-01-26] MEDS ORDERED: DEXTROSE 5%-WATER - 50 ML IVPB ONE (09:42)
[2020-01-26] MEDS ORDERED: cefTRIAXone SODIUM 1 GM VIAL ONE (09:42)
[2020-01-26] MEDS ORDERED: PT OWN MED DRAWER 7, Y5N ONE (09:42)
[2020-01-26] MEDS: CARBIDOPA/LEVODOPA 25/100 TABLET (FP) PO SCH (10:00)
[2020-01-26] MEDS: POLYETHYLENE GLYCOL 3350 119 GM BTL PO SCH ×2 (10:00→21:10)
[2020-01-26] MEDS: DOCUSATE SODIUM 100 MG CAPSULE (FP) PO SCH (10:00)
[2020-01-26] MEDS: CEFTRIAXONE 1 GM in DEXTROSE 5%-WATER - 50 ML IVPB SCH (10:00)
--- NOTE | 2020-01-26 13:18 | PN ---
Progress Note, Physician Chief Complaint: back pain History of Present Illness: denies cp, sob, palp, syncope - Current Medication List Current Medications: Active Medications Acetaminophen (Tylenol -) 1,000 mg PO Q6H PRN PRN Reason: PAIN LEVEL 1-5 Last Admin: 01/26/20 12:15 Dose: 1,000 mg Documented by: Carbidopa/Levodopa (Sinemet 25/100 -) 1 each PO DAILY [facility] Last Admin: 01/26/20 10:00 Dose: 1 each Documented by: Docusate Sodium (Colace -) 100 mg PO DAILY [facility] Last Admin: 01/26/20 10:00 Dose: 100 mg Documented by: Heparin Sodium (Porcine) (Heparin -) 5,000 unit SQ TID [facility] Last Admin: 01/26/20 06:02 Dose: 5,000 unit Documented by: Ceftriaxone Sodium 1 gm/ (Dextrose) 50 mls @ 100 mls/hr IVPB DAILY [facility]; Protocol Last Admin: 01/26/20 10:00 Dose: 100 mls/hr Documented by: Insulin Aspart (Novolog Vial Sliding Scale -) 1 vial SQ ACHS [facility]; Protocol Last Admin: 01/26/20 12:12 Dose: 2 unit Documented by: Non-Formulary Medication (Pramipexole Di-Hcl [Mirapex Er]) 0.375 mg PO TID [facility] Polyethylene Glycol (Miralax (For Daily Use) -) 17 gm PO BID [facility] Last Admin: 01/26/20 10:00 Dose: 17 grams Documented by: Senna (Senna -) 1 tab PO HS [facility] Last Admin: 01/25/20 22:13 Dose: 1 tab Documented by: - Objective Vital Signs: Vital Signs Temperature 98.5 F 01/26/20 10:00 Pulse Rate 88 01/26/20 10:00 Respiratory Rate 18 01/26/20 10:00 Blood Pressure 150/92 01/26/20 10:00 O2 Sat by Pulse Oximetry (%) 95 01/26/20 10:00 Constitutional: Yes: Well Nourished, No Distress, Calm Cardiovascular: Yes: Regular Rate and Rhythm, S1, S2. No: Gallop, Murmur Respiratory: Yes: Regular, CTA Bilaterally. No: Accessory Muscle Use Extremities: No: Cold Edema: No Neurological: Yes: Alert. No: Seizure Psychiatric: No: Agitated Labs: CBC, BMP 01/25/20 05:50 01/25/20 05:50 Assessment/Plan IMP: Abdominal pain with suspected UTI Back pain Abnormal ECG, incidental finding Chronic HTN "CHF" REC: 1. Abdominal /flank pain: -Suspected UTI -As per PMD -Seems to be component of MSK pain as well 2. 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 HTN: -bp acceptable -Cont home meds -outpt f/u 4. CHF: -Unclear history -Euvolemic at this time -Echo normal LV and RV, valve fxn off tele
[2020-01-26] MEDS: SENNOSIDES 8.6MG TABLET (FP) PO SCH (21:11)
[2020-01-26] MEDS ORDERED: MELATONIN 5 MG TABLETS PO ONE (21:13)
[2020-01-27] MEDS: HEPARIN NA (PORCINE) 5,000 UNITS/ML 1ML VIAL SQ SCH ×3 (06:05→22:27)
[2020-01-27] MEDS: INSULIN SLIDING SCALE (NOVOLOG) 1 VIAL SQ SCH ×4 (06:05→22:30)
[2020-01-27] MEDS: ACETAMINOPHEN 500 MG TABLET (FP) PO PRN ×2 (06:06→10:01)
[2020-01-27] MEDS ORDERED: PT OWN MED DRAWER 7, Y5N ONE ×2 (09:54→22:24)
[2020-01-27] MEDS ORDERED: DEXTROSE 5%-WATER - 50 ML IVPB ONE (09:55)
[2020-01-27] MEDS ORDERED: cefTRIAXone SODIUM 1 GM VIAL ONE (09:55)
[2020-01-27] MEDS: POLYETHYLENE GLYCOL 3350 119 GM BTL PO SCH ×2 (10:02→22:27)
[2020-01-27] MEDS: CARBIDOPA/LEVODOPA 25/100 TABLET (FP) PO SCH ×2 (10:02→17:53)
[2020-01-27] MEDS: CEFTRIAXONE 1 GM in DEXTROSE 5%-WATER - 50 ML IVPB SCH (10:02)
[2020-01-27] MEDS: DOCUSATE SODIUM 100 MG CAPSULE (FP) PO SCH (10:02)
--- NOTE | 2020-01-27 10:48 | PN ---
Progress Note, Physician Chief Complaint: back pain History of Present Illness: denies cp, sob, palp, syncope R flank still hurts - Current Medication List Current Medications: Active Medications Acetaminophen (Tylenol -) 1,000 mg PO Q6H PRN PRN Reason: PAIN LEVEL 1-5 Last Admin: 01/27/20 10:01 Dose: 1,000 mg Documented by: Carbidopa/Levodopa (Sinemet 25/100 -) 1 each PO DAILY [facility] Last Admin: 01/27/20 10:02 Dose: 1 each Documented by: Docusate Sodium (Colace -) 100 mg PO DAILY [facility] Last Admin: 01/27/20 10:02 Dose: 100 mg Documented by: Heparin Sodium (Porcine) (Heparin -) 5,000 unit SQ TID [facility] Last Admin: 01/27/20 06:05 Dose: 5,000 unit Documented by: Ceftriaxone Sodium 1 gm/ (Dextrose) 50 mls @ 100 mls/hr IVPB DAILY [facility]; Protocol Last Admin: 01/27/20 10:02 Dose: 100 mls/hr Documented by: Insulin Aspart (Novolog Vial Sliding Scale -) 1 vial SQ ACHS [facility]; Protocol Last Admin: 01/27/20 06:05 Dose: 2 unit Documented by: Non-Formulary Medication (Pramipexole Di-Hcl [Mirapex Er]) 0.375 mg PO TID [facility] Polyethylene Glycol (Miralax (For Daily Use) -) 17 gm PO BID [facility] Last Admin: 01/27/20 10:02 Dose: Not Given Documented by: Senna (Senna -) 1 tab PO HS [facility] Last Admin: 01/26/20 21:11 Dose: Not Given Documented by: - Objective Vital Signs: Vital Signs Temperature 97.7 F 01/27/20 06:00 Pulse Rate 85 01/27/20 06:00 Respiratory Rate 18 01/27/20 06:00 Blood Pressure 118/65 01/27/20 06:00 O2 Sat by Pulse Oximetry (%) 95 01/27/20 06:00 Constitutional: Yes: Well Nourished, No Distress, Calm Cardiovascular: Yes: Regular Rate and Rhythm, S1, S2. No: Gallop, Murmur Respiratory: Yes: Regular, CTA Bilaterally. No: Accessory Muscle Use Extremities: No: Cold Edema: No Neurological: Yes: Alert, Oriented Psychiatric: No: Agitated Labs: CBC, BMP 01/25/20 05:50 01/25/20 05:50 Assessment/Plan IMP: Abdominal pain with suspected UTI Back pain Abnormal ECG, incidental finding Chronic HTN "CHF" REC: 1. Abdominal /flank pain: -Sec to pyelo -As per hospitalist team -Seems to be component of MSK pain as well 2. 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 HTN: -bp acceptable -Cont home meds -outpt f/u 4. CHF: -Unclear history -Euvolemic at this time -Echo normal LV and RV, valve fxn off tele
[2020-01-27 12:16] LABS: BASO % 0.6 % (0-2.0); EOS % 0.4 % (0-4.5); HEMATOCRIT 39.8 % (32.4-45.2); HEMOGLOBIN 13.4 GM/dL (10.7-15.3); LYMPH % 16.8 % (8-40); MCH 31.3 pg (25.7-33.7); MCHC 33.6 g/dl (32.0-36.0); MEAN CELL VOLUME 92.9 fl (80-96); MEAN PLT VOLUME 9.9 fl (7.5-11.1); MONO % 5.6 % (3.8-10.2); NEUT % 76.6 % (42.8-82.8); PLATELET COUNT 223 K/MM3 (134-434); RBC 4.29 M/mm3 (3.60-5.2); RDW 13.8 % (11.6-15.6); WHITE BLOOD COUNT 9.1 K/mm3 (4.0-10.0)
--- NOTE | 2020-01-27 12:21 | PN ---
Teaching Attending Note Name of Resident: Pamela Trujillo ATTENDING PHYSICIAN STATEMENT I saw and evaluated the patient. I reviewed the resident's note and discussed the case with the resident. I agree with the resident's findings and plan as documented. SUBJECTIVE: pt seen and examined OBJECTIVE: Last Vital Signs Temp Pulse Resp BP Pulse Ox 98.9 F 90 18 148/80 95 01/27/20 10:00 01/27/20 10:00 01/27/20 10:00 01/27/20 10:00 01/27/20 10:00 GENERAL: The patient is awake, alert, and fully oriented, in no acute distress. LUNGS: Breath sounds equal, clear to auscultation bilaterally, no wheezes, no crackles, no accessory muscle use. HEART: Regular rate and rhythm, S1, S2 without murmur, rub or gallop. ABDOMEN: Soft, lt lumbar tenderness without rebound tenderness EXTREMITIES: 2+ pulses, warm, well-perfused, no edema. labs reviewed ASSESSMENT AND PLAN: 84 year old lady with history of Parkinson's Disease, hypertension, diabetes mellitus, HFpEF, presents with complaint of right lower abdominal quadrant/ flank pain # Sepsis due to acute pyelonephritis - resolved leukocytosis, tachycardia, +ve UA/culture -CT and US noted, no hydronephrosis -VSS, but still complains of pain -c/w ceftriaxone, gentle hydration, pain management -urine cultures G-ve -Monitor intake, output # Acute constipation -bowel regimen -added enema -may repeat imaging if no resulotion of symptoms -agree that could be some musculoskeletal component Hyperglycemia Diabetes mellitus HFpEF AUBREE Parkinson's Disease DVT prophylaxis Appreciate cardiology notes
[2020-01-27 12:35] LABS: CALCIUM 9.4 mg/dL (8.5-10.1)
[2020-01-27 12:36] LABS: BLOOD UREA NITROGEN 20.3 mg/dL (7-18)
[2020-01-27 12:40] LABS: BILIRUBIN,TOTAL 0.6 mg/dL (0.2-1)
[2020-01-27 12:41] LABS: TOT PROT 6.3 g/dl (6.4-8.2)
--- NOTE | 2020-01-27 13:52 | PN ---
Physical Exam: SUBJECTIVE: Patient seen and examined. C/o right costovertebral tenderness, constipation. OBJECTIVE: Vital Signs Period Temp Pulse Resp BP Sys/Delgadillo Pulse Ox Last 24 Hr 97.5 F-98.9 F 85-98 17-20 118-152/65-84 95-96 GENERAL: AAOx3, in mild distress 2/2 CV tenderness HEENT: NCAT, PERRLA, EOMI, sclera anicteric, conjunctiva clear, oropharynx clear w/o exudates. MMM. Neck supple. LUNGS: CTABL no wheezes/ rhonchi/ rales. No increased work of breathing. HEART: RRR, normal S1 S2, no M/R/G, peripheral pulses 2+ and equal b/l ABDOMEN: Soft, NTND, + BS. No guarding or rebound. No hepatomegaly or splenomegaly. +CVA tenderness R>L MSK: ROM WNL EXTREMITIES: Normal inspection. No peripheral edema. No clubbing or cyanosis. NEUROLOGICAL: CN II-XII intact. Normal speech, no focal sensorimotor deficits. SKIN: Warm, Dry, normal turgor, no rashes or lesions noted Laboratory Results - last 24 hr 01/26/20 01/26/20 01/27/20 17:15 21:09 11:37 WBC 9.1 RBC 4.29 Hgb 13.4 Hct 39.8 MCV 92.9 MCH 31.3 MCHC 33.6 RDW 13.8 Plt Count 223 MPV 9.9 Absolute Neuts (auto) 7.0 Neutrophils % 76.6 Lymphocytes % 16.8 D Monocytes % 5.6 Eosinophils % 0.4 D Basophils % 0.6 Nucleated RBC % 0 Sodium Potassium Chloride Carbon Dioxide Anion Gap BUN Creatinine Est GFR (CKD-EPI)AfAm Est GFR (CKD-EPI)NonAf POC Glucometer 218 277 Random Glucose Calcium Total Bilirubin AST ALT Alkaline Phosphatase Total Protein Albumin 01/27/20 11:37 WBC RBC Hgb Hct MCV MCH MCHC RDW Plt Count MPV Absolute Neuts (auto) Neutrophils % Lymphocytes % Monocytes % Eosinophils % Basophils % Nucleated RBC % Sodium 136 Potassium 4.0 Chloride 103 Carbon Dioxide 26 Anion Gap 7 L BUN 20.3 H Creatinine 1.0 Est GFR (CKD-EPI)AfAm 59.49 Est GFR (CKD-EPI)NonAf 51.33 POC Glucometer Random Glucose 244 H Calcium 9.4 Total Bilirubin 0.6 AST 27 ALT 8 L Alkaline Phosphatase 86 Total Protein 6.3 L Albumin 3.0 L Active Medications Generic Name Dose Route Start Last Admin Trade Name Shruti PRN Reason Stop Dose Admin Acetaminophen 1,000 mg 01/25/20 18:25 01/27/20 10:01 Tylenol - PO 1,000 mg Q6H PRN Administration PAIN LEVEL 1-5 Carbidopa/Levodopa 1 each 01/25/20 10:00 01/27/20 10:02 Sinemet 25/100 - PO 1 each DAILY SONYA Administration Docusate Sodium 100 mg 01/26/20 10:00 01/27/20 10:02 Colace - PO 100 mg DAILY SONYA Administration Heparin Sodium (Porcine) 5,000 unit 01/24/20 22:00 01/27/20 13:42 Heparin - SQ 5,000 unit TID SONYA Administration Ceftriaxone Sodium 1 gm/ 50 mls @ 100 mls/hr 01/25/20 10:00 01/27/20 10:02 Dextrose IVPB 100 mls/hr DAILY [facility] Administration Protocol Insulin Aspart 1 vial 01/24/20 16:30 01/27/20 12:00 Novolog Vial Sliding Scale - SQ 4 unit ACHS SONYA Administration Protocol Non-Formulary Medication 0.375 mg 01/24/20 22:00 Pramipexole Di-Hcl [Mirapex Er] PO TID [facility] Polyethylene Glycol 17 gm 01/26/20 10:00 01/27/20 10:02 Miralax (For Daily Use) - PO Not Given BID SONYA Senna 1 tab 01/25/20 22:00 01/26/20 21:11 Senna - PO Not Given HS [facility] ASSESSMENT/PLAN: 84 year old lady with history of Parkinson's Disease, hypertension, diabetes mellitus, HFpEF, presenting with complaint of right lower abdominal quadrant/flank pain. 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, seen in 2008 -Nonspecific T waves, trops negative x 2 -echo normal but limited study -can f/u with cardio outpatient #AUBREE -c/w gentle hydration -Cr wnl -monitor renal labs & avoid nephrotoxic meds #Parkinson's Disease c/w home Carbidopa-Levodopa #FEN -NS @ 50 mls/hrs -monitor lytes; replete PRN -diabetic/ sodium controlled diet #Prophylaxis -DVT: Heparin SQ TID Visit type - Emergency Visit Emergency Visit: No - New Patient This patient is new to me today: No - Critical Care Critical Care patient: No - Medication Review Med list reviewed for High Risk Meds patients 65 and older: Yes ATTENDING PHYSICIAN STATEMENT I saw and evaluated the patient. I reviewed the resident's note and discussed the case with the resident. I agree with the resident's findings and plan as documented. SUBJECTIVE: OBJECTIVE: ASSESSMENT AND PLAN:
[2020-01-27] MEDS: PRAMIPEXOLE DIHYDROCHLORIDE 0.125 MG TABLET PO SCH (17:51)
[2020-01-27] MEDS ORDERED: PRAMIPEXOLE DIHYDROCHLORIDE 0.5 MG TABLET PO SCH (22:00)
[2020-01-27] MEDS: SENNOSIDES 8.6MG TABLET (FP) PO SCH (22:30)
[2020-01-28] MEDS ORDERED: PT OWN MED DRAWER 7, Y5N ONE ×3 (05:51→11:42)
[2020-01-28] MEDS: HEPARIN NA (PORCINE) 5,000 UNITS/ML 1ML VIAL SQ SCH ×2 (05:52→14:12)
[2020-01-28] MEDS: CARBIDOPA/LEVODOPA 25/100 TABLET (FP) PO SCH ×2 (05:52→11:47)
[2020-01-28] MEDS: ACETAMINOPHEN 500 MG TABLET (FP) PO PRN (05:54)
[2020-01-28] MEDS: PRAMIPEXOLE DIHYDROCHLORIDE 0.125 MG TABLET PO SCH ×2 (05:54→11:47)
[2020-01-28] MEDS ORDERED: INSULIN SLIDING SCALE (NOVOLOG) 1 VIAL SQ ONE (06:03)
[2020-01-28 08:04] LABS: HEMATOCRIT 38.6 % (32.4-45.2); HEMOGLOBIN 12.9 GM/dL (10.7-15.3); MCH 31.2 pg (25.7-33.7); MCHC 33.4 g/dl (32.0-36.0); MEAN CELL VOLUME 93.4 fl (80-96); MEAN PLT VOLUME 9.9 fl (7.5-11.1); PLATELET COUNT 208 K/MM3 (134-434); RBC 4.13 M/mm3 (3.60-5.2); RDW 13.8 % (11.6-15.6); WHITE BLOOD COUNT 7.7 K/mm3 (4.0-10.0)
[2020-01-28] MEDS: INSULIN SLIDING SCALE (NOVOLOG) 1 VIAL SQ SCH ×2 (08:55→11:51)
[2020-01-28] MEDS: PRAMIPEXOLE DI HCL 0.375 MG PO SCH ×2 (08:55→08:56)
[2020-01-28] MEDS ORDERED: DEXTROSE 5%-WATER - 50 ML IVPB ONE (08:58)
[2020-01-28] MEDS ORDERED: cefTRIAXone SODIUM 1 GM VIAL ONE (08:58)
[2020-01-28] MEDS: CEFTRIAXONE 1 GM in DEXTROSE 5%-WATER - 50 ML IVPB SCH (09:03)
[2020-01-28] MEDS: DOCUSATE SODIUM 100 MG CAPSULE (FP) PO SCH (09:03)
[2020-01-28] MEDS: POLYETHYLENE GLYCOL 3350 119 GM BTL PO SCH (09:04)
[2020-01-28] MEDS ORDERED: MINERAL OIL ENEMA 133 ML ENEMA RC ONE (09:24)
--- NOTE | 2020-01-28 10:25 | PN ---
Progress Note (short form) - Note Progress Note: Chief Complaint: back pain History of Present Illness: denies cp, sob, palp, syncope mild flank pain improved Current Medications Generic Name Dose Route Start Last Admin Trade Name Shruti PRN Reason Stop Dose Admin Acetaminophen 1,000 mg 01/25/20 18:25 01/28/20 05:54 Tylenol - PO 1,000 mg Q6H PRN Administration PAIN LEVEL 1-5 Carbidopa/Levodopa 1 each 01/27/20 18:00 01/28/20 05:52 Sinemet 25/100 - PO 1 each 0600,1200,1800 SONYA Administration Docusate Sodium 100 mg 01/26/20 10:00 01/28/20 09:03 Colace - PO 100 mg DAILY SONYA Administration Heparin Sodium (Porcine) 5,000 unit 01/24/20 22:00 01/28/20 05:52 Heparin - SQ 5,000 unit TID SONYA Administration Ceftriaxone Sodium 1 gm/ 50 mls @ 100 mls/hr 01/25/20 10:00 01/28/20 09:03 Dextrose IVPB 100 mls/hr DAILY SONYA Administration Protocol Insulin Aspart 1 vial 01/24/20 16:30 01/28/20 08:55 Novolog Vial Sliding Scale - SQ Not Given ACHS SONYA Protocol Polyethylene Glycol 17 gm 01/26/20 10:00 01/28/20 09:04 Miralax (For Daily Use) - PO 17 grams BID SONYA Administration Pramipexole Dihydrochloride 0.375 mg 01/27/20 18:00 01/28/20 05:54 Mirapex - PO 0.375 mg 0600,1200,1800 SONYA Administration Pramipexole Dihydrochloride 0.75 mg 01/28/20 22:00 Mirapex - PO HS SONYA Senna 1 tab 01/25/20 22:00 01/27/20 22:30 Senna - PO Not Given HS SONYA Vital Signs Period Temp Pulse Resp BP Sys/Delgadillo Pulse Ox Last 24 Hr 97.1 F-98.2 F 89-98 18-20 115-144/55-69 94-95 Constitutional: Yes: Well Nourished, No Distress, Calm Cardiovascular: Yes: Regular Rate and Rhythm, S1, S2. No: Gallop, Murmur Respiratory: Yes: Regular, CTA Bilaterally. No: Accessory Muscle Use Extremities: No: Cold Edema: No Neurological: Yes: Alert, Oriented Psychiatric: No: Agitated no chance dice diaphoresis Labs: CBC, BMP 01/28/20 07:11 01/28/20 07:11 Assessment/Plan IMP: Abdominal pain with suspected UTI Back pain Abnormal ECG, incidental finding Chronic HTN "CHF" REC: 1. Abdominal /flank pain: -Sec to pyelo -As per hospitalist team -Seems to be component of MSK pain as well 2. 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 HTN: -bp acceptable -Cont home meds -outpt f/u 4. CHF: -Unclear history -Euvolemic at this time -Echo normal LV and RV, valve fxn off tele
--- NOTE | 2020-01-28 11:47 | PN ---
Teaching Attending Note Name of Resident: Hernandez Kasper ATTENDING PHYSICIAN STATEMENT I saw and evaluated the patient. I reviewed the resident's note and discussed the case with the resident. I agree with the resident's findings and plan as documented. SUBJECTIVE: pt seen and examined, pain has improved OBJECTIVE: Last Vital Signs Temp Pulse Resp BP Pulse Ox 98 F 89 18 115/61 94 L 01/28/20 09:02 01/28/20 09:02 01/28/20 09:02 01/28/20 09:02 01/28/20 09:02 GENERAL: The patient is awake, alert, and fully oriented, in no acute distress. LUNGS: Breath sounds equal, clear to auscultation bilaterally, no wheezes, no crackles, no accessory muscle use. HEART: Regular rate and rhythm, S1, S2 without murmur, rub or gallop. ABDOMEN: Soft, lt lumbar tenderness without rebound tenderness EXTREMITIES: 2+ pulses, warm, well-perfused, no edema. lab reviewed Active Medications Acetaminophen (Tylenol -) 1,000 mg PO Q6H PRN PRN Reason: PAIN LEVEL 1-5 Last Admin: 01/28/20 05:54 Dose: 1,000 mg Documented by: Carbidopa/Levodopa (Sinemet 25/100 -) 1 each PO 0600,1200,1800 [facility] Last Admin: 01/28/20 05:52 Dose: 1 each Documented by: Cyclobenzaprine HCl (Cyclobenzaprine Hcl) 5 mg PO HS [facility] Docusate Sodium (Colace -) 100 mg PO DAILY [facility] Last Admin: 01/28/20 09:03 Dose: 100 mg Documented by: Heparin Sodium (Porcine) (Heparin -) 5,000 unit SQ TID [facility] Last Admin: 01/28/20 05:52 Dose: 5,000 unit Documented by: Ceftriaxone Sodium 1 gm/ (Dextrose) 50 mls @ 100 mls/hr IVPB DAILY [facility]; Protocol Last Admin: 01/28/20 09:03 Dose: 100 mls/hr Documented by: Insulin Aspart (Novolog Vial Sliding Scale -) 1 vial SQ ACHS [facility]; Protocol Last Admin: 01/28/20 08:55 Dose: Not Given Documented by: Polyethylene Glycol (Miralax (For Daily Use) -) 17 gm PO BID [facility] Last Admin: 01/28/20 09:04 Dose: 17 grams Documented by: Pramipexole Dihydrochloride (Mirapex -) 0.375 mg PO 0600,1200,1800 [facility] Last Admin: 01/28/20 05:54 Dose: 0.375 mg Documented by: Pramipexole Dihydrochloride (Mirapex -) 0.75 mg PO HS SONYA Senna (Senna -) 1 tab PO HS SONYA Last Admin: 01/27/20 22:30 Dose: Not Given Documented by: ASSESSMENT AND PLAN: 84 year old lady with history of Parkinson's Disease, hypertension, diabetes mellitus, HFpEF, presents with complaint of right lower abdominal quadrant/ flank pain # Sepsis due to acute pyelonephritis - resolved leukocytosis, tachycardia, +ve UA/culture -CT and US noted, no hydronephrosis -VSS, but still complains of pain, improved -can switch to PO ABx -urine cultures klebsiella -Monitor intake, output # Acute constipation -bowel regimen -added enema -may repeat imaging if no resulotion of symptoms -agree that could be some musculoskeletal component (added flexiril) Hyperglycemia Diabetes mellitus HFpEF AUBREE Parkinson's Disease DVT prophylaxis Appreciate cardiology notes
[2020-01-28 13:48] VITALS: BP 106/57; PULSE 91; TEMP 98.2
--- NOTE | 2020-01-28 15:37 | DS ---
Physical Exam: SUBJECTIVE: Patient seen and examined this morning, endorsed mild flank pain, however after receiving an enema, she reported feeling much better. Denied any F/C, N/V, CP, SoB. OBJECTIVE: Vital Signs Period Temp Pulse Resp BP Sys/Delgadillo Pulse Ox Last 24 Hr 97.7 F-98.2 F 89-98 18-18 106-144/55-69 94-95 PHYSICAL EXAM GENERAL: The patient is awake, alert, and fully oriented, in no acute distress. HEAD: Normal with no signs of trauma. EYES: PERRL, extraocular movements intact, sclera anicteric, conjunctiva clear. ENT: Ears normal, nares patent, oropharynx clear without exudates, moist mucous membranes. NECK: Trachea midline, full range of motion, supple. LUNGS: Breath sounds equal, clear to auscultation bilaterally, no wheezes, no crackles, no accessory muscle use. HEART: Regular rate and rhythm, S1, S2 without murmur, rub or gallop. ABDOMEN: Soft, nontender, nondistended, normoactive bowel sounds, no guarding EXTREMITIES: 2+ pulses, warm, well-perfused, no edema. NEUROLOGICAL: Normal speech, gait not observed. PSYCH: Normal mood, normal affect. SKIN: Warm, dry, normal turgor, no rashes or lesions noted. LABS Laboratory Results - last 24 hr 01/28/20 01/28/20 01/28/20 06:01 07:11 07:11 WBC 7.7 RBC 4.13 Hgb 12.9 Hct 38.6 MCV 93.4 MCH 31.2 MCHC 33.4 RDW 13.8 Plt Count 208 MPV 9.9 Sodium Cancelled Potassium Cancelled Chloride Cancelled Carbon Dioxide Cancelled Anion Gap Cancelled BUN Cancelled Creatinine Cancelled Est GFR (CKD-EPI)AfAm Cancelled Est GFR (CKD-EPI)NonAf Cancelled POC Glucometer 236 Random Glucose Cancelled Calcium Cancelled Phosphorus Cancelled Magnesium Cancelled Total Bilirubin Cancelled AST Cancelled ALT Cancelled Alkaline Phosphatase Cancelled Total Protein Cancelled Albumin Cancelled 01/28/20 11:49 WBC RBC Hgb Hct MCV MCH MCHC RDW Plt Count MPV Sodium Potassium Chloride Carbon Dioxide Anion Gap BUN Creatinine Est GFR (CKD-EPI)AfAm Est GFR (CKD-EPI)NonAf POC Glucometer 226 Random Glucose Calcium Phosphorus Magnesium Total Bilirubin AST ALT Alkaline Phosphatase Total Protein Albumin HOSPITAL COURSE: Date of Admission:01/24/20 ECHO: 60-65% EKG: NSR Incomplete RBBB; Left Anterior Fasicular Block. Prolonged Qt Date of Discharge: 01/28/20 84 yo F w/ PMHx of Parkinson's Disease, hypertension, diabetes mellitus and congestive heart failure, presented with complaint of right lower abdominal quadrant/flank pain. Patient endorsed pain has been ongoing for the past three days without clear inciting features. She describes sharp pain localized to the right flank that is constant. She attempted taking Acetaminophen, and Ibuprofen which temporarily alleviated the pain. She endorsed urinary frequency, however denies dysuria or hematuria. She denied subjective fevers, chills, shortness of breath, chest pain, palpitations, abdominal pain, nausea, or vomiting. Ptn was admitted to the floors. Urine Cx showed Klebsiella pneumonia, and patient was started on Rocephin for urinary tract infection. Imaging including CT Abd/Pel and Renal US showed no evidence of Pyelonephritis. WBC max was 10.2 and patient remained afebrile throughout. Rocephin was continued for 5 days, and the ptn was given Augmentin 500mgBID for 3 days on DC. At the time of DC, patient was medically stable to go home Minutes to complete discharge: 36 Discharge Summary Problems reviewed: Yes Reason For Visit: CYSTITIS Current Active Problems Spasm of muscle (Chronic) Condition: Stable - Instructions Diet, Activity, Other Instructions: YOUR VISIT You came to the hospital because you were experiencing belly and groin pain. You were admitted to the hospital for a condition called "Urinary Tract Infection" which is an infection of your urinary system, and were given antibiotics for these symptoms. You are now stable and may return home. Of note, during your stay here we also found: CAT Scan: Evidence of "Diverticulosis" in your bowel, which you can discuss with your primary care provider. MEDICATIONS Please START taking Augmentin 500mg twice a day (morning and night) for 3 days for your recent urinary infection Please START taking Flexaril 5mg 1 pill at night for relief of your abdominal spasms. It can make you feel tired. Follow up with your primary care provider to see if they want it continued. Please continue to take your home medications as prescribed. ADDITIONAL CARE Please make an appointment to see Dr. Willie Larson (Primary Care) within 2 weeks for evaluation of you recent hospital stay. ADDITIONAL INFORMATION Please call 911 or come directly to the emergency department if you experience recurrence of the symptoms that brought you to the hospital, unusual headache, vision change, shortness of breath, chest pain, numbness, tingling, loss of alertness/awareness, loss of function, unusual bleeding or any alarming symptoms. Referrals: Willie Larson MD [Primary Care Provider] - 2 Weeks Disposition: HOME - Home Medications Comprehensive Discharge Medication List: Ambulatory Orders Sitagliptin Phosphate [Januvia] 50 mg PO DAILY 07/13/13 Carbidopa/Levodopa [Carbidopa-Levodopa 25-100 Tab] 1 each PO TID 01/24/20 Furosemide [Lasix] 20 mg PO DAILY 01/24/20 Pramipexole Di-HCl [Mirapex ER] 0.375 mg PO TID 01/24/20 Ramipril 2.5 mg PO DAILY 01/24/20 Insulin Glargine,Hum.rec.anlog [Basaglar Kwikpen U-100] 45 unit SQ DAILY 01/25/20 Amox-Tr/K Cl [Augmentin - 500Mg Tablet] 1 tab PO BID 3 Days #6 tablet 01/28/20 Cyclobenzaprine HCl 5 mg PO HS 7 Days #7 tablet MDD 5MG 01/28/20 This patient is new to me today: Yes Date on this admission: 01/28/20 Emergency Visit: No Critical Care patient: No - Discharge Referral Referred to [facility] Med [facility] No ATTENDING PHYSICIAN STATEMENT I saw and evaluated the patient. I reviewed the resident's note and discussed the case with the resident. I agree with the resident's findings and plan as documented. SUBJECTIVE: OBJECTIVE: ASSESSMENT AND PLAN:
--- NOTE | 2020-01-28 16:13 | EKG ---
Test Reason : Blood Pressure : / mmHG Vent. Rate : 087 BPM Atrial Rate : 087 BPM P-R Int : 132 ms QRS Dur : 118 ms QT Int : 392 ms P-R-T Axes : 026 -53 045 degrees QTc Int : 471 ms NORMAL SINUS RHYTHM INCOMPLETE RIGHT BUNDLE BRANCH BLOCK LEFT ANTERIOR FASCICULAR BLOCK T WAVE ABNORMALITY, CONSIDER ANTERIOR ISCHEMIA PROLONGED QT ABNORMAL ECG WHEN COMPARED WITH ECG OF 24-JAN-2020 16:14, NO SIGNIFICANT CHANGE WAS FOUND Confirmed by DMITRI VALDEZ MD ([id number]) on 01/28/2020 4:12:49 PM Referred By: Confirmed By:DMITRI VALDEZ MD
[2020-01-28 17:09] LABS: POTASSIUM 4.1 mmol/L (3.5-5.1)
[2020-01-28 17:11] LABS: CALCIUM 9.2 mg/dL (8.5-10.1)
[2020-01-28 17:12] LABS: BLOOD UREA NITROGEN 23.3 mg/dL (7-18); MAGNESIUM 1.8 mg/dL (1.8-2.4)
[2020-01-28 17:15] LABS: PHOSPHOROUS 3.5 mg/dL (2.5-4.9)
[2020-01-28 17:16] LABS: BILIRUBIN,TOTAL 0.2 mg/dL (0.2-1); TOT PROT 6.2 g/dl (6.4-8.2)
[2020-01-28] MEDS ORDERED: PRAMIPEXOLE DIHYDROCHLORIDE 0.25 MG TABLET PO SCH (22:00)
[2020-01-28] MEDS ORDERED: CYCLOBENZAPRINE HCL 5 MG TABLET PO SCH (22:00)
== END 2020-01-28 18:05 | disposition home or self-care (01) | DRG 872 ==
LOC: JER 10:10 → JERBED 15:35 → J4S 01-25 08:40
PROVIDERS: ATTEND Student in an Organized Health Care Education/Training Program
DX: A41.59 Other Gram-negative sepsis (principal); I50.20 Unspecified systolic (congestive) heart failure; N17.9 Acute kidney failure, unspecified; E11.65 Type 2 diabetes mellitus with hyperglycemia; I45.10 Unspecified right bundle-branch block; I44.4 Left anterior fascicular block; I10 Essential (primary) hypertension; G20 Parkinson's disease; I11.0 Hypertensive heart disease with heart failure; R94.31 Abnormal electrocardiogram [ECG] [EKG]; R00.0 Tachycardia, unspecified; D72.829 Elevated white blood cell count, unspecified; K59.09 Other constipation
CPT/HCPCS: 36415; 71045-TC-FY; 73523-TC-FY; 74176-TC; 76775-TC; 76856-TC; 80048; 80053; 81003; 82962; 83735; 84100; 84484; 85025; 85027; 87086; 87186; 93005; 93010; 93306-TC; 97116-GP; 97161-GP; 99285-25; C9803; J0131; J1644; U0003